=== PATIENT | female | born 1975 | race Caucasian/White ===

== ENCOUNTER 2016-09-02 10:20 | Emergency (ER) | payer MEDICARE, MEDICAID ==
[~2016-09-02] VITALS: Ht 165.1 cm; Wt 91.9 kg
[2016-09-02] MEDS ORDERED: ASPIRIN 81 MG TABLET CHEW ONE (11:26)
[2016-09-02 11:30] LABS: HEMOGLOBIN 14.6 g/dL (11.7-16.4)
[2016-09-02] MEDS ORDERED: ASPIRIN 81 MG TABLET CHEW PO ONE (11:30)
[2016-09-02 11:42] LABS: BLOOD UREA NITROGEN 12 mg/dL (7-18)
[2016-09-02 11:47] LABS: IS PT STATUS REG ER OR PRE ER? YES
[2016-09-02 12:03] VITALS: BP 117/73
== END 2016-09-02 12:11 | disposition home or self-care (01) ==
LOC: ED 11:29
DX: J00 Acute nasopharyngitis [common cold] (principal); R07.89 Other chest pain; Z88.1 Allergy status to other antibiotic agents; Z88.8 Allergy status to other drugs, medicaments and biological substances
CPT/HCPCS: 36415; 71020; 80048; 82040; 83880; 84484; 85025; 93005; 99285

== ENCOUNTER 2018-02-19 12:43 | Emergency (ER) | payer MEDICARE, MEDICAID ==
[~2018-02-19] VITALS: Ht 165.1 cm; Wt 88.1 kg
[~2018-02-19 12:43] MED LIST: BUPR-173 PO; CYAN1TAB29 PO
[2018-02-19] MEDS ORDERED: SODIUM CHLORIDE FLUSH 10ML SYR IVF ONE (14:00)
[2018-02-19] MEDS ORDERED: DIPHENHYDRAMINE 50 MG/ML, 1ML IVPush ONE (14:00)
[2018-02-19 14:03] LABS: BASOPHILS # (AUTO) 0.01 x10^3/uL (0-0.1); BASOPHILS % (AUTO) 0 % (0-1); EOSINOPHILS # (AUTO) 0.04 x10^3/uL (0-0.4); EOSINOPHILS % (AUTO) 1 % (1-7); LYMPHOCYTES % (AUTO) 31 % (22-44); MD NO; MEAN CORPUSCULAR HGB CONC 34.3 g/dL (32.4-35.8); MEAN CORPUSCULAR VOLUME 87.3 fL (80-100); MEAN PLATELET VOLUME 8.6 fL (7.4-10.4); MONOCYTES # (AUTO) 0.39 x10^3/uL (0.2-0.8); MONOCYTES % (AUTO) 6 % (2-9); NEUTROPHILS # (AUTO) 4.08 x10^3/uL (1.8-6.8); NEUTROPHILS % (AUTO) 63 % (42-75); PLATELET COUNT 234 x10^3/uL (130-400); RED BLOOD COUNT 4.87 x10^6/uL (3.82-5.3); RED CELL DISTRIBUTION WIDTH 13.5 % (9.6-15.2)
[2018-02-19 14:15] LABS: ALANINE AMINOTRANSFERASE 51 U/L (12-78); ALBUMIN 3.8 g/dL (3.4-5.0); ANION GAP 7 mmol/L (5-15); CHLORIDE 109 mmol/L (98-107)
[2018-02-19 14:17] LABS: CULTURE INDICATED? YES; MICROSCOPIC INDICATED
[2018-02-19 14:20] LABS: ALKALINE PHOSPHATASE 127 U/L (45-117); BILIRUBIN,TOTAL 0.8 mg/dL (0.2-1.0); CREATININE 0.82 mg/dL (0.55-1.02); TOTAL PROTEIN 7.9 g/dL (6.4-8.2)
[2018-02-19] MEDS ORDERED: DIPHENHYDRAMINE 50 MG/ML, 1ML ONE (14:20)
[2018-02-19] MEDS ORDERED: OMNIPAQUE 350 MG/ML, 100ML BOTTLE ONE (15:48)
[2018-02-19] MEDS ORDERED: CEFTRIAXONE 1,000 MG in SODIUM CHLORIDE 0.9% 50 ML IVPB ONE (16:30)
[2018-02-19] MEDS ORDERED: CEFTRIAXONE PMX 1GM/50ML 50 ML ONE (16:45)
[2018-02-19] MEDS ORDERED: KETOROLAC 30 MG/1 ML IM ONE (17:00)
[2018-02-19] MEDS ORDERED: KETOROLAC 30 MG/1 ML IVPush ONE (17:00)
[2018-02-19] MEDS ORDERED: KETOROLAC 30 MG/1 ML ONE (17:01)
[2018-02-19 17:13] VITALS: BP 123/77
== END 2018-02-19 17:49 | disposition home or self-care (01) ==
LOC: ED 13:50
DX: N30.00 Acute cystitis without hematuria (principal); Z90.89 Acquired absence of other organs
CPT/HCPCS: 36415; 74177; 80053; 81001; 83690; 84703; 85025; 87086; 96365; 96375; 99285; J0696; J1200; J1885; Q9967

== ENCOUNTER 2018-02-23 05:34 | Emergency (ER) | payer MEDICARE, MEDICAID ==
[~2018-02-23] VITALS: Ht 165.1 cm; Wt 87.8 kg
[2018-02-23] MEDS ORDERED: CEFD300C37 PO (05:45)
[2018-02-23] MEDS ORDERED: OMEP-110 PO (05:45)
[2018-02-23] MEDS ORDERED: BUPR300T49 PO (05:45)
[2018-02-23] MEDS ORDERED: ONDANSETRON ODT 4 MG ONE (06:22)
[2018-02-23] MEDS ORDERED: HYDROmorphone 2 MG/ML, 1ML ONE (06:22)
[2018-02-23] MEDS ORDERED: ONDANSETRON ODT 4 MG PO ONE (06:30)
[2018-02-23] MEDS ORDERED: HYDROmorphone 2 MG/ML, 1ML IM ONE (06:30)
[2018-02-23 06:45] LABS: ALANINE AMINOTRANSFERASE 53 U/L (12-78); ALBUMIN 3.6 g/dL (3.4-5.0); ANION GAP 6 mmol/L (5-15); CHLORIDE 109 mmol/L (98-107); CREATININE 1.04 mg/dL (0.55-1.02)
[2018-02-23 06:47] LABS: ALKALINE PHOSPHATASE 122 U/L (45-117); BILIRUBIN,TOTAL 0.7 mg/dL (0.2-1.0); TOTAL PROTEIN 7.8 g/dL (6.4-8.2)
[2018-02-23 06:53] LABS: BASOPHILS # (AUTO) 0.02 x10^3/uL (0-0.1); BASOPHILS % (AUTO) 0 % (0-1); EOSINOPHILS # (AUTO) 0.02 x10^3/uL (0-0.4); EOSINOPHILS % (AUTO) 0 % (1-7); LYMPHOCYTES # (AUTO) 1.62 x10^3/uL (1-3.4); LYMPHOCYTES % (AUTO) 23 % (22-44); MD NO; MEAN CORPUSCULAR HEMOGLOBIN 29.1 pg (27.0-34.8); MEAN CORPUSCULAR HGB CONC 33.6 g/dL (32.4-35.8); MEAN CORPUSCULAR VOLUME 86.7 fL (80-100); MEAN PLATELET VOLUME 8.6 fL (7.4-10.4); MONOCYTES # (AUTO) 0.43 x10^3/uL (0.2-0.8); MONOCYTES % (AUTO) 6 % (2-9); NEUTROPHILS # (AUTO) 5.11 x10^3/uL (1.8-6.8); NEUTROPHILS % (AUTO) 71 % (42-75); PLATELET COUNT 235 x10^3/uL (130-400); RED BLOOD COUNT 4.86 x10^6/uL (3.82-5.3); RED CELL DISTRIBUTION WIDTH 13.3 % (9.6-15.2)
[2018-02-23 07:13] LABS: MICROSCOPIC INDICATED
[2018-02-23 07:15] LABS: CULTURE INDICATED? YES
[2018-02-23 09:09] VITALS: BP 114/79
== END 2018-02-23 09:10 | disposition home or self-care (01) ==
LOC: ED 05:50
DX: N39.0 Urinary tract infection, site not specified (principal); H92.01 Otalgia, right ear; B34.9 Viral infection, unspecified; Z90.89 Acquired absence of other organs
CPT/HCPCS: 36415; 80053; 81001; 85025; 87077; 87086; 87106; 96372; 99284; J1170; Q0162; 87186

== ENCOUNTER 2018-04-03 09:22 | Emergency (ER) | payer MEDICARE, MEDICAID ==
[~2018-04-03] VITALS: Ht 165.1 cm; Wt 90.1 kg
[~2018-04-03 09:22] MED LIST changes: +BUPR300T49 PO; +CEFD300C37 PO; +OMEP-110 PO
[2018-04-03 11:22] VITALS: BP 129/69
== END 2018-04-03 11:25 | disposition home or self-care (01) ==
LOC: ED 09:58
DX: M25.561 Pain in right knee (principal)
CPT/HCPCS: 29505

== ENCOUNTER 2020-07-24 10:13 | Emergency (ER) | payer MEDICARE ==
[~2020-07-24] VITALS: Ht 165.1 cm; Wt 89.0 kg
[~2020-07-24 10:13] MED LIST changes: +CIPR250T27 PO; +HYDR-1067 PO; +IBUP-1222 PO; +METR-90 PO
[2020-07-24] MEDS ORDERED: SODIUM CHLORIDE FLUSH 10ML SYR IVF ONE (10:30)
[2020-07-24] MEDS ORDERED: MORPHINE SULFATE 4 MG/ML, 1ML IVPush PRN (10:30)
[2020-07-24] MEDS ORDERED: ONDANSETRON 2MG/ML, 2ML IVPush ONE (10:30)
[2020-07-24] MEDS ORDERED: ONDANSETRON 2MG/ML, 2ML ONE (10:38)
[2020-07-24] MEDS ORDERED: MORPHINE SULFATE 4 MG/ML, 1ML ONE (10:38)
--- NOTE | 2020-07-24 10:42 | NUR ---
PT IN BED IV STARTED, MEDICATED
[2020-07-24 10:44] LABS: BASOPHILS % (AUTO) 1 % (0-1); EOSINOPHILS % (AUTO) 1 % (1-7); LYMPHOCYTES % (AUTO) 30 % (22-44); MEAN CORPUSCULAR HEMOGLOBIN 29.9 pg (27.0-34.8); MEAN CORPUSCULAR HGB CONC 34.3 g/dL (32.4-35.8); MEAN PLATELET VOLUME 8.1 fL (7.4-10.4); MONOCYTES % (AUTO) 6 % (2-9); NEUTROPHILS % (AUTO) 62 % (42-75); PLATELET COUNT 236 x10^3/uL (130-400); RED CELL DISTRIBUTION WIDTH 13.8 % (9.6-15.2)
[2020-07-24 10:47] LABS: MD NO
[2020-07-24 10:56] LABS: ALANINE AMINOTRANSFERASE 49 U/L (12-78); ALBUMIN 3.5 g/dL (3.4-5.0); ANION GAP 4 mmol/L (5-15); CALCIUM 8.6 mg/dL (8.5-10.1); CHLORIDE 109 mmol/L (98-107); CREATININE 0.78 mg/dL (0.55-1.02)
[2020-07-24 11:00] LABS: ALKALINE PHOSPHATASE 96 U/L (45-117); BILIRUBIN,TOTAL 0.5 mg/dL (0.2-1.0); TOTAL PROTEIN 7.1 g/dL (6.4-8.2)
[2020-07-24 11:06] LABS: MICROSCOPIC AUTO
--- NOTE | 2020-07-24 11:18 | NUR ---
pt down to us.
[2020-07-24 12:11] VITALS: BP 132/73
--- NOTE | 2020-07-24 12:11 | NUR ---
PT BACK FROM US
--- NOTE | 2020-07-24 12:58 | NUR ---
natalya rodriguez by [email or web address]
== END 2020-07-24 13:10 | disposition home or self-care (01) ==
LOC: ED 11:11
DX: N83.292 Other ovarian cyst, left side (principal); R10.32 Left lower quadrant pain; R10.2 Pelvic and perineal pain; R19.7 Diarrhea, unspecified; J45.909 Unspecified asthma, uncomplicated; Z90.49 Acquired absence of other specified parts of digestive tract; Z90.89 Acquired absence of other organs
CPT/HCPCS: 36415; 76830; 80053; 81001; 84703; 85025; 87086; 96374; 96375; 99284; J2270; J2405

== ENCOUNTER 2020-07-30 12:01 | Day surgery (SDC) | payer MEDICARE ==
[2020-07-28 14:06] LABS: MICROSCOPIC INDICATED
[~2020-07-30] VITALS: Ht 165.1 cm; Wt 88.9 kg
[~2020-07-30 12:01] MED LIST changes: +BUPIVACAINE/PF 0.25% ONE; +EPINEPHRINE 1 MG/ML, 1ML ONE; +HYDR-3237 PO; +SILVER NITRATE STICK TP ONE; +antibiotic PO
[2020-07-30] MEDS ORDERED: LACTATED RINGERS 1,000 ML IV SCH (12:30)
[2020-07-30 12:40] VITALS: BP 136/89
[2020-07-30] MEDS ORDERED: VENTOLIN INH (12:49)
[2020-07-30] MEDS ORDERED: VITAMIN C PO (12:49)
[2020-07-30] MEDS ORDERED: MULTIVITAMIN PO (12:49)
[2020-07-30] MEDS ORDERED: VITAMIN D PO (12:49)
[2020-07-30 12:50] LABS: HCG UR SG 1.024 (1.003-1.030)
[2020-07-30] MEDS ORDERED: CHLORHEXIDINE 15 ML UDC MM ONE (13:00)
[2020-07-30] MEDS ORDERED: MIDAZOLAM 1 MG/ML, 2ML ONE (13:43)
[2020-07-30] MEDS ORDERED: FENTANYL PF 100 MCG/2ML ONE ×4 (13:43→16:41)
[2020-07-30] MEDS ORDERED: LABETALOL 5MG/ML, 20ML IV PRN (14:00)
[2020-07-30] MEDS ORDERED: hydrALAzine 20 MG/ML, 1ML IV PRN (14:00)
[2020-07-30] MEDS ORDERED: OXYcodone 5 MG/5 ML ORAL.SOL UDC PO PRN (14:00)
[2020-07-30] MEDS ORDERED: PROMETHAZINE 25 MG/ML, 1ML IVPush PRN (14:00)
[2020-07-30] MEDS ORDERED: ACETAMINOPHEN 325 MG TABLET PO PRN (14:00)
[2020-07-30] MEDS ORDERED: FENTANYL PF 100 MCG/2ML IV PRN (14:00)
[2020-07-30] MEDS ORDERED: MEPERIDINE/PF 25MG/0.5ML IVPush PRN (14:00)
[2020-07-30] MEDS ORDERED: ALBUTEROL SULFATE 2.5 MG/3 ML NPPB PRN (14:00)
[2020-07-30] MEDS ORDERED: HYDROmorphone 1 MG/ML, 1ML INJ IVPush PRN (14:00)
[2020-07-30] MEDS ORDERED: NEOSTIGMINE 1 MG/ML, 10ML ONE (15:20)
[2020-07-30] MEDS ORDERED: ROCURONIUM 10MG/ML,5ML ONE (15:20)
[2020-07-30] MEDS ORDERED: DEXAMETHASONE 4 MG/ML, 1ML ONE (15:20)
[2020-07-30] MEDS ORDERED: CEFAZOLIN 1,000 MG ONE (15:20)
[2020-07-30] MEDS ORDERED: GLYCOPYRROLATE 0.2MG/1ML, 5ML ONE (15:20)
[2020-07-30] MEDS ORDERED: PROPOFOL 10 MG/ML, 20ML ONE (15:20)
[2020-07-30] MEDS ORDERED: ONDANSETRON 2MG/ML, 2ML ONE (15:20)
[2020-07-30] MEDS ORDERED: OXYcodone 5 MG/5 ML ORAL.SOL UDC ONE ×2 (15:49→16:41)
[2020-07-30] MEDS ORDERED: ACETAMINOPHEN 650 MG/20.3 ML UDC ONE ×2 (15:49→16:42)
[2020-07-30] MEDS ORDERED: KETOROLAC 30 MG/1 ML ONE (16:04)
== END 2020-07-30 19:05 | disposition home or self-care (01) ==
LOC: OR 12:01 → OUT 19:05
PROVIDERS: ATTEND Obstetrics & Gynecology
DX: N83.292 Other ovarian cyst, left side (principal); N73.6 Female pelvic peritoneal adhesions (postinfective); I10 Essential (primary) hypertension; K21.9 Gastro-esophageal reflux disease without esophagitis; J45.909 Unspecified asthma, uncomplicated; M19.90 Unspecified osteoarthritis, unspecified site; E66.9 Obesity, unspecified; Z91.048 Other nonmedicinal substance allergy status; Z88.2 Allergy status to sulfonamides; Z88.1 Allergy status to other antibiotic agents; Z88.3 Allergy status to other anti-infective agents; Z98.890 Other specified postprocedural states; Z20.822 Contact with and (suspected) exposure to COVID-19; Z87.891 Personal history of nicotine dependence; Z90.49 Acquired absence of other specified parts of digestive tract; Z79.899 Other long term (current) drug therapy; Z68.32 Body mass index [BMI] 32.0-32.9, adult
CPT/HCPCS: 36415; 58661; 81001; 81025; 84703; 88305; J0171; J0690; J1100; J1885; J2250; J2405; J2704; J2710; J3010; J7120; U0003